=== PATIENT | female | born 1950 | race Caucasian/White ===

== ENCOUNTER → 2021-05-02 11:28 | Outpatient (CLI) | payer OTHER ==
[~2021-05-02 11:28] MED LIST: ASPIR 8181 MG; ENALAPRIL MALEA20 MG; GLIPIZIDE10 MG; HYDROCHLOROTHIA25 MG; METOPROLOL SUCC50 MG
== END | disposition home or self-care (01) ==
LOC: LAB 11:28
PROVIDERS: ATTEND Internal Medicine Cardiovascular Disease
DX: R10.84 Generalized abdominal pain (principal); N39.0 Urinary tract infection, site not specified

== ENCOUNTER → 2021-06-21 | Outpatient (CLI) | payer OTHER | END | disposition home or self-care (01) | LOC: SONOGRAMA 12:45 → RAD 13:39 | PROVIDERS: ATTEND Internal Medicine Cardiovascular Disease | DX: G93.89 Other specified disorders of brain (principal); G30.8 Other Alzheimer's disease; N63.11 Unspecified lump in the right breast, upper outer quadrant; M25.562 Pain in left knee; Z12.31 Encounter for screening mammogram for malignant neoplasm of breast; R51.0 Headache with orthostatic component, not elsewhere classified ==

== ENCOUNTER 2021-07-12 14:24 | Outpatient (CLI) | payer OTHER | END 2021-07-12 14:29 | disposition home or self-care (01) | LOC: SONOGRAMA 14:24 | PROVIDERS: ATTEND Internal Medicine Cardiovascular Disease | DX: M71.22 Synovial cyst of popliteal space [Baker], left knee (principal); M12.862 Other specific arthropathies, not elsewhere classified, left knee ==

== ENCOUNTER 2023-05-28 09:32 | Outpatient (CLI) | payer OTHER | END 2023-05-28 09:42 | disposition home or self-care (01) | LOC: SONOGRAMA 09:32 | PROVIDERS: ATTEND Internal Medicine Cardiovascular Disease | DX: E04.2 Nontoxic multinodular goiter (principal) ==

== ENCOUNTER 2023-06-04 07:54 | Outpatient (CLI) | payer OTHER | END 2023-06-04 08:07 | disposition home or self-care (01) | LOC: RX STUDY 07:54 | PROVIDERS: ATTEND Internal Medicine Cardiovascular Disease | DX: R13.10 Dysphagia, unspecified (principal) ==

== ENCOUNTER 2024-04-15 13:40 | Outpatient (CLI) | payer OTHER | END 2024-04-15 13:56 | disposition home or self-care (01) | LOC: MRI 13:40 | PROVIDERS: ATTEND Internal Medicine Cardiovascular Disease | DX: M12.9 Arthropathy, unspecified (principal) | CPT/HCPCS: 73221 ==

== ENCOUNTER → 2024-05-12 | Outpatient (CLI) | payer OTHER | END | disposition home or self-care (01) | LOC: RAD 12:06 | PROVIDERS: ATTEND Physical Medicine & Rehabilitation | DX: M25.511 Pain in right shoulder (principal) ==

== ENCOUNTER 2024-11-18 13:18 | Outpatient (CLI) | payer OTHER | END 2024-11-18 13:19 | disposition home or self-care (01) | LOC: NUCLEAR 13:18 | PROVIDERS: ATTEND Psychiatry & Neurology Clinical Neurophysiology | DX: G31.84 Mild cognitive impairment of uncertain or unknown etiology (principal) | CPT/HCPCS: 78803; A9557 ==

== ENCOUNTER 2025-01-13 14:03 | Outpatient (CLI) | payer OTHER | END 2025-01-13 14:11 | disposition home or self-care (01) | LOC: SONOGRAMA 14:03 | DX: N18.2 Chronic kidney disease, stage 2 (mild) (principal) ==

== ENCOUNTER 2025-01-19 13:23 | Outpatient (CLI) | payer OTHER | END 2025-01-19 13:34 | disposition home or self-care (01) | LOC: MAMO-SONO 13:23 | PROVIDERS: ATTEND Internal Medicine Cardiovascular Disease | DX: N60.11 Diffuse cystic mastopathy of right breast (principal); N60.12 Diffuse cystic mastopathy of left breast; Z12.31 Encounter for screening mammogram for malignant neoplasm of breast ==

== ENCOUNTER → 2025-06-16 | Outpatient (CLI) | payer OTHER | END | disposition home or self-care (01) | LOC: RAD 15:41 | DX: M54.2 Cervicalgia (principal); M25.522 Pain in left elbow ==